=== PATIENT | female | born 1995 | race Caucasian/White ===

== ENCOUNTER 2016-10-05 07:18 | Inpatient (IN) | payer OTHER ==
[~2016-10-05] VITALS: Ht 167.6 cm; Wt 93.2 kg
[2016-10-05] VITALS (27 sets, daily range): BP systolic 116–140; BP diastolic 60–90
[~2016-10-05 07:18] MED LIST: AMOXICILLIN500 M1 PO; AMOXICILLIN875 MG PO; CITALOPRAM HBR10 MG PO; MACROBID100 MG PO; PEN-VEE K,VEET500 MG PO; PRENATAL TABLE1 EAC3 PO; PROMETHAZINE HC25 M1 PO; PYRIDIUM100 MG PO; ULTRAM50 MG PO
[2016-10-05 09:22] LABS: EOSINOPHIL (%) 0.9 % (0-5); EOSINOPHIL COUNT 0.1 K/uL (0-0.3); HEMATOCRIT 34.3 % (36.0-46.0); IMMATURE GRANULOCYTE (%) 0.3 % (0.0-0.7); LYMPHOCYTE COUNT 1.6 K/uL (1.0-2.8); MCH 32.1 PG (29.0-34.0); MCHC 34.1 G/DL (30.0-36.0); MEAN PLAT.VOLUME 11.1 uM^3 (9.5-12.4); MONOCYTE (%) 8.8 % (3-12); MONOCYTE COUNT 0.6 K/uL (0-0.8); NEUTROPHIL COUNT 4.5 K/uL (1.8-6.4); PLATELET COUNT 145 K/uL (156-360); RBC DIS.WIDTH-CV 13.9 % (11.8-14.6); RBC DIS.WIDTH-SD 47.3 % (39-53); RED BLOOD COUNT 3.65 M/uL (3.80-5.20); WHITE BLOOD COUNT 6.9 K/uL (4.1-10.2)
[2016-10-05 11:00] LABS: AMPHETAMINES QUANT VALUE 0 NG/ML; BARBITUATES QUANT VALUE 0 NG/ML; BENZODIAZEPINES QUANT VALUE 0 NG/ML; BENZODIAZEPINES, URINE SCREEN Negative (200 ng/mL); MARIJUANA QUANT VALUE 0 NG/ML; OPIATES QUANTITATIVE VALUE 0 NG/ML; PHENCYCLIDINE QUANT VALUE 0 NG/ML
[2016-10-06] VITALS (16 sets, daily range): BP systolic 116–150; BP diastolic 60–103
[2016-10-07 07:20] VITALS: BP 128/61
[2016-10-07 07:26] LABS: EOSINOPHIL COUNT 0.1 K/uL (0-0.3); IMMATURE GRANULOCYTE (%) 0.1 % (0.0-0.7); LYMPHOCYTE COUNT 2.3 K/uL (1.0-2.8); MCH 32.3 PG (29.0-34.0); MCHC 33.8 G/DL (30.0-36.0); MCV 95.7 FL (83-99); MEAN PLAT.VOLUME 11.1 uM^3 (9.5-12.4); MONOCYTE (%) 7.3 % (3-12); MONOCYTE COUNT 0.7 K/uL (0-0.8); NEUTROPHIL (%) 65.6 % (45-76); NEUTROPHIL COUNT 5.8 K/uL (1.8-6.4); PLATELET COUNT 116 K/uL (156-360); RBC DIS.WIDTH-CV 14.2 % (11.8-14.6); RBC DIS.WIDTH-SD 48.6 % (39-53); RED BLOOD COUNT 3.03 M/uL (3.80-5.20); WHITE BLOOD COUNT 8.9 K/uL (4.1-10.2)
[2016-10-07 13:11] VITALS: BP 139/102
[2016-10-07 13:13] VITALS: BP 142/96
[2016-10-07 14:16] VITALS: BP 146/79
[2016-10-07 15:25] VITALS: BP 128/77
[2016-10-07 22:28] VITALS: BP 128/84
[2016-10-08 06:59] VITALS: BP 116/76
[2016-10-08] MEDS ORDERED: CAMILA0.35 MG PO (10:31)
[2016-10-08] MEDS ORDERED: IBUPROFEN800 MG PO (10:31)
[2016-10-08] MEDS ORDERED: FERRETTS106 MG PO (10:32)
== END 2016-10-08 14:16 | disposition home or self-care (01) | DRG 774 ==
LOC: LDRP-OP 07:18 → 2WEST 07:19 → LDRP-OP 07:46 → 2WEST 10-06 07:06 → LDRP-OP 11-04 22:08
PROVIDERS: Advanced Practice Midwife
DX: O40.3XX0 Polyhydramnios, third trimester, not applicable or unspecified (principal); D62 Acute posthemorrhagic anemia; O63.9 Long labor, unspecified; E66.9 Obesity, unspecified; Z68.30 Body mass index [BMI] 30.0-30.9, adult; O99.824 Streptococcus B carrier state complicating childbirth; O99.214 Obesity complicating childbirth; O74.5 Spinal and epidural anesthesia-induced headache during labor and delivery; O99.02 Anemia complicating childbirth; O70.0 First degree perineal laceration during delivery; Z3A.40 40 weeks gestation of pregnancy; Z37.0 Single live birth
CPT/HCPCS: 59025; 81003; 85025; C1755; G0378; G0478; J2540; J2795; J3010; J7120; Q0169